=== PATIENT | female | born 1975 | race Caucasian/White ===

== ENCOUNTER 2017-05-06 13:00 | Emergency (ER) | payer MEDICAID ==
[~2017-05-06] VITALS: Ht 152.4 cm; Wt 110.0 kg
[2017-05-06 13:03] VITALS: Ht 152.4 cm; Wt 110.0 kg
[2017-05-06] MEDS ORDERED: SOD CHLORIDE 0.9% 1,000 ML IV STA ×2 (13:18→15:09)
[2017-05-06] MEDS ORDERED: ONDANSETRON 4 MG INJ IV STA (13:18)
[2017-05-06] MEDS ORDERED: morphine 4 MG/ML VIAL IV STA ×2 (13:18→16:47)
[2017-05-06 14:08] LABS: ADD SCAN DIFF NO
[2017-05-06 14:10] LABS: EOSINOPHILS # 0.1 10^3/ul (0.0-0.5); EOSINOPHILS % 1.3 % (0.0-7.0); HEMATOCRIT 40.5 % (37.0-47.0); HEMOGLOBIN 13.2 g/dl (12.0-16.0); LYMPHOCYTES # 2.1 10^3/ul (0.8-2.9); LYMPHOCYTES % 29.1 % (15.0-51.0); MEAN CORPUSCULAR HEMOGLOBIN 26.2 pg (29.0-33.0); MEAN CORPUSCULAR HGB CONC 32.6 g/dl (32.0-37.0); MEAN CORPUSCULAR VOLUME 80.5 fl (82.0-101.0); MONOCYTE # 0.3 10^3/ul (0.3-0.9); MONOCYTES % 3.8 % (0.0-11.0); NEUTROPHIL # 4.6 10^3/ul (1.6-7.5); NEUTROPHILS % 65.4 % (39.0-77.0); PLATELET COUNT 188 10^3/UL (140-415); RED BLOOD COUNT 5.03 10^6/ul (4.20-5.40); WHITE BLOOD COUNT 7.1 10^3/ul (4.8-10.8)
[2017-05-06 14:33] LABS: ALBUMIN 4.7 g/dl (3.3-4.9); ALBUMIN/GLOBULIN RATIO 1.34; BILIRUBIN,INDIRECT 0.4 mg/dl (0-1.1); BILIRUBIN,TOTAL 0.4 mg/dl (0.2-1.3); CREATININE 0.5 mg/dl (0.44-1.00); POTASSIUM 3.7 mmol/L (3.5-5.1); TOTAL PROTEIN 8.2 g/dl (6.1-8.1)
--- NOTE | 2017-05-06 15:22 | RADRPT ---
PROCEDURE: US Abdomen. CLINICAL INDICATION: abdominal pain TECHNIQUE: Multiple real-time images were acquired of the patient's right upper quadrant abdomen a nd retroperitoneum utilizing a high resolution transducer. COMPARISON: None FINDINGS: The liver demonstrates increased echogenicity. There is increased nodularity of the surface of the liver. The liver is enlarged in size and no focal solid lesions are seen. The liver measures 21.7 c m in length. The portal vein is patent with normal direction of flow. No intrahepatic biliary dilat ation is seen. There is a 1.9 cm calcified stone within the gallbladder. There is no pericholecystic fluid or gallb ladder wall thickening. The common bile duct measures 4 mm in maximal dimension. The visualized portions of the pancreas are unremarkable. The tail of the pancreas is not seen. No free fluid is identified. The right kidney is normal in size, and demonstrate normal echogenicity and cortical thickness. The right kidney measures 10.9 cm in long dimension. There is no evidence of hydronephrosis. There are no kidney stones. RPTAT: AA IMPRESSION: Hepatomegaly with increased echogenicity and a nodular contour, suspicious for cirrhosis. Single calcified stone within the gallbladder. .Doni Romero MD, MD Date Time Electronically viewed and signed by .Doni Romero MD, on 05/06/2017 15:22 .S/
[2017-05-06 15:33] LABS: URINE BLOOD (Dip) POC Negative (NEGATIVE)
[2017-05-06] MEDS ORDERED: METF500T4 PO (15:38)
[2017-05-06] MEDS ORDERED: HYDR-906 PO (15:38)
[2017-05-06] MEDS ORDERED: ONDA4TAB14 PO (15:38)
[2017-05-06 15:43] LABS: ADD UMIC YES; URINE BILIRUBIN (Dip) NEGATIVE (NEGATIVE); URINE BLOOD (Dip) TRACE (NEGATIVE); URINE COLOR LT. YELLOW (YELLOW); URINE GLUCOSE (Dip) >=1000 % (NEGATIVE); URINE KETONES (Dip) 15 (NEGATIVE); URINE LEUKOCYTE ESTERASE (Dip) NEGATIVE (NEGATIVE); URINE NITRITE (Dip) NEGATIVE (NEGATIVE); URINE TOTAL PROTEIN (Dip) TRACE (NEGATIVE); URINE UROBILINOGEN (Dip) 0.2 E.U./dL (0.1-1.0)
[2017-05-06 16:02] LABS: SQUAMOUS EPITHELIAL CELL,UR FEW; URINE RBCS 0-2 /HPF (0)
[2017-05-06] MEDS ORDERED: KETOROLAC 30 MG INJ IV STA (16:04)
[2017-05-06 16:06] VITALS: TEMP 98
--- NOTE | 2017-05-06 16:51 | EN ---
Date/Time of Note Date/Time of Note DATE: 05/06/17 TIME: 16:48 ER Progress Note Patient has already been discharged by JANICE Monsivais. I was informed by RN that patient is still complaining of severe abdominal pain, appears uncomfortable. Toradol 30 mg IV given to the patient. Patient reports no improvement of pain after Toradol. Morphine 4 mg IV was then given to the patient. After morphine, patient reports some improvement. Patient was discharged home at this time. Condition at time of discharge: Stable. SERGIO ALVAREZ NP May 06, 2017 16:51
[2017-05-06 17:17] VITALS: BP 128/70; PULSE 71; RESP 20
--- NOTE | 2017-05-07 06:21 | ERD ---
ER Documentation Chief Complaint Date/Time DATE: 05/07/17 TIME: 06:20 Chief Complaint AP RAD BACK ONSET LAST NIGHT HPI This is a 41-year-old female with no stated medical problems presenting to the emergency department complaining of epigastric pain that radiates to her back since last night. Patient rates the pain as constant, 8 out of 10 and sharp. Patient admits to having associated nausea. She denies vomiting, diarrhea, fevers. Patient states that she has tried Zantac without any relief. Patient denies alcohol or drug use. She states that her past abdominal surgeries include . ROS All systems reviewed and are negative except as per history of present illness. Medications Home Meds Active Scripts Ondansetron (Ondansetron Odt) 4 Mg Tab.rapdis, 4 MG PO Q6H Y for NAUSEA AND/OR VOMITING, #14 TAB Prov:BRANDIE GARCIA PA-C 05/06/17 Metformin* (Glucophage*) 500 Mg Tab, 500 MG PO BID, #60 TAB Prov:BRANDIE GARCIA PA-C 05/06/17 Hydrocodone/Acetaminophen ([place] 5-325 Tablet) 1 Each Tablet, 1 TAB PO Q6H Y for PAIN, #20 TAB Prov:BRANDIE GARCIA PA-C 05/06/17 Allergies Allergies: Coded Allergies: No Known Allergy (Unverified , 05/06/17) PMhx/Soc Medical and Surgical Hx: pt denies Medical Hx History of Surgery: Yes ( x3) Hx Miscellaneous Medical Probl: Yes () Hx Alcohol Use: No Hx Substance Use: No Hx Tobacco Use: Yes Smoking Status: Never smoker Physical Exam Vitals Vital Signs Date Time Temp Pulse Resp B/P Pulse Ox O2 Delivery O2 Flow Rate FiO2 05/06/17 17:17 71 20 128/70 97 Room Air 05/06/17 16:06 98.0 68 20 108/56 98 Room Air 05/06/17 13:03 98.8 99 18 136/81 99 Physical Exam GENERAL: well-developed/well-nourished, in no apparent distress, non-toxic appearing. Patient is obese with central obesity HENT: NC/AT, moist mucous membranes EYES: Conjunctiva normal NECK: Supple, no lymphadenopathy PULM: CTA bilaterally, no rales, rhonchi, or wheezing heard CV: Normal S1S2, RRR, good capillary refill GI: Soft, non-distended, tender to palpation right upper quadrant epigastric. Negative Parks's Normal bowel sounds, no masses or organomegaly felt on exam No gross peritonitis, no bruits Negative Rovsing, , negative McBurney's point, Negative CVAT BACK: No masses EXT: No clubbing, cyanosis, or edema NEURO: Alert and Orientated SKIN: Intact, normal turgor PSYCH: Normal mood and mentation Result Diagram: 05/06/17 1350 05/06/17 1350 Results 24 hrs Laboratory Tests Test 05/06/17 13:50 05/06/17 15:15 05/06/17 15:32 05/06/17 15:36 White Blood Count 7.110^3/ul Red Blood Count 5.0310^6/ul Hemoglobin 13.2g/dl Hematocrit 40.5% Mean Corpuscular Volume 80.5fl Mean Corpuscular Hemoglobin 26.2pg Mean Corpuscular Hemoglobin Concent 32.6g/dl Red Cell Distribution Width 14.0% Platelet Count 06098^3/UL Mean Platelet Volume 12.0fl Neutrophils % 65.4% Lymphocytes % 29.1% Monocytes % 3.8% Eosinophils % 1.3% Basophils % 0.0% Nucleated Red Blood Cells % 0.0/100WBC Neutrophils # 4.610^3/ul Lymphocytes # 2.110^3/ul Monocytes # 0.310^3/ul Eosinophils # 0.110^3/ul Basophils # 0.010^3/ul Nucleated Red Blood Cells # 0.010^3/ul Sodium Level 136mmol/L Potassium Level 3.7mmol/L Chloride Level 100mmol/L Carbon Dioxide Level 25mmol/L Anion Gap 15 Blood Urea Nitrogen 12mg/dl Creatinine 0.50mg/dl Glucose Level 346mg/dl Calcium Level 9.0mg/dl Total Bilirubin 0.4mg/dl Direct Bilirubin 0.00mg/dl Indirect Bilirubin 0.4mg/dl Aspartate Amino Transf (AST/SGOT) 88IU/L Alanine Aminotransferase (ALT/SGPT) 79IU/L Alkaline Phosphatase 116IU/L Total Protein 8.2g/dl Albumin 4.7g/dl Globulin 3.50g/dl Albumin/Globulin Ratio 1.34 Lipase 65U/L Urine Color LT. YELLOW Urine Clarity CLEAR Urine pH 6.0 Urine Specific [place] 1.020 Urine Ketones 15 Urine Nitrite NEGATIVE Urine Bilirubin NEGATIVE Urine Urobilinogen 0.2 E.U./dL Urine Leukocyte Esterase NEGATIVE Urine Microscopic RBC 0-2/HPF Urine Microscopic WBC 2-5/HPF Urine Squamous Epithelial Cells FEW Urine Hemoglobin TRACE Urine Glucose >=1000% Urine Total Protein TRACE Bedside Glucose 283mg/dL Bedside Urine pH (LAB) 6.0 Bedside Urine Protein (LAB) 1+ Bedside Urine Glucose (UA) 0.50% Bedside Urine Ketones (LAB) Trace Bedside Urine Blood Negative Bedside Urine Nitrite (LAB) Negative Bedside Urine Leukocyte Esterase (L Negative Current Medications Medications (Trade) Dose Ordered Sig/Jordana Route PRN Reason Start Time Stop Time Status Last Admin Dose Admin Sodium Chloride (NS) 1,000 ml @ 1,000 mls/hr Q1H STAT IV 05/06/17 13:18 05/06/17 14:17 DC 05/06/17 13:59 Morphine Sulfate (morphine) 4 mg ONCE STAT IV 05/06/17 13:18 05/06/17 13:20 DC 05/06/17 13:59 Ondansetron HCl 4 mg 4 mg ONCE STAT IV 05/06/17 13:18 05/06/17 13:20 DC 05/06/17 13:59 Sodium Chloride (NS) 1,000 ml @ 1,000 mls/hr Q1H STAT IV 05/06/17 15:09 05/06/17 16:08 DC 05/06/17 15:19 Ketorolac Tromethamine (Toradol) 30 mg ONCE STAT IV 05/06/17 16:04 05/06/17 16:05 DC 05/06/17 16:11 Morphine Sulfate (morphine) 4 mg ONCE STAT IV 05/06/17 16:47 05/06/17 16:49 DC 05/06/17 16:51 Procedures/MDM This is a 41-year-old female with no known medical problems presenting to the emergency room complaining of epigastric abdominal pain and nausea that radiates to the back since last night which is likely due to cholelithiasis and possibly due to cirrhosis. I doubt patient has sepsis, choledocholithiasis, cholecystitis or cholangitis, pancreatitis or other acute abdomen conditions due to physical examination and diagnostic testing. Patient appears well and nontoxic appearing with stable vital signs. Patient was also found to have hyperglycemia, likely due to a new diagnosis of diabetes type II, without any evidence of DKA or hyperosmolar state. IV access was established. Patient was given 2 L of fluid. Patient was given morphine and Zofran and pain appears to be stabilized in the ED during my encounter with the patient. Lab work was drawn. CBC did not show any evidence of leukocytosis or anemia. CMP showed mild elevated transaminases likely due to scarring of the liver. Glucose level was initially 346 and recheck after 1 L of fluids was 283. There was no evidence of DKA or hyperosmolar state. Patient had normal potassium. Urinalysis did not show any evidence of urinary tract infection. There was evidence of glucose in the urine. Gallbladder US: Hepatomegaly with increased echogenicity and a nodular contour, suspicious for cirrhosis. Single calcified stone within the gallbladder. Diagnostic testing and instructions were given to patient. When I have reassessed her she appeared to have her pain stabilized, patient still had 500cc of normal saline fluids left. Patient was in need of additional pain relief therefore HE[employer] SE[employer]IMMER Tiny provided that for her, she was stable to be discharged home. Prescription [place] and antiemetic Zofran prescriptions were provided for outpatient self-care. I have started patient on metformin 500 mg twice daily and discussed with patient to follow-up with primary care for full evaluation of diabetes and GI referral for cholecystectomy. Precautions were given to return to the ER for fever, intractable pain, increased vomiting, and other worsening signs and symptoms. Patient expressed agreement and understanding of this plan. Departure Diagnosis: Primary Impression: Cholelithiasis Additional Impression: High blood sugar Condition: Stable Patient Instructions: Hyperglycemia (High Blood Sugar), Treating Cirrhosis, Gallstones, Cirrhosis Ref[facility] Usted se wilkins hecho un examen mdico de control que le indica que no est en erin condicin que requiera tratamiento urgente en el Departamento de Emergencia. Un estudio ms profundo y el tratamiento de ortega condicin pueden esperar sin ningn riesgo hasta que usted sea atendida/o en el consultorio de ortega mdico o erin cl gilma. Es responsabilidad suya arreglar erin cal para el seguimiento del yareli. MANEJO DE CONDICIONES NO URGENTES EN EL FUTURO 1) Si usted tiene un mdico de atencin primaria: Usted debera llamar a ortega mdico de atencin primaria antes de venir al departamento de emergencia. Despus de las horas de consultorio, ortega doctor o ortega asociado/a est disponible por telfono. El mdico o enfermero de bobo en el servicio telefnico puede asesorarle por hadley medio para atender el problema, o yareli contrario se puede programar erin cal. 2) Si usted no tiene un mdico de atencin primaria: Llame al mdico o clnica de referencia que aparece abajo good las horas de consultorio para hacer erin cal para que le vean. CLINICAS: [facility] [phone] [address] [facility] [facility] [phone] [address] [facility] [facility] [phone] [address] [facility]. [place] [phone] [facility] [phone] [address] [facility]. [phone] [address] Additional Instructions: Visite a ortega mdico maana para un EXAMEN.Regrese a estas instalaciones si no se mejora chavez esperbamos o chavez le dijimos. [place] toda la medicina rocio y chavez se le indic. Regrese a estas instalaciones si no se mejora chavez esperbamos o chavez le dijimos. La medicina que se le recet puede causarle sueo.NO DEBE MANEJAR NI OPERAR MAQUINARIAS PELIGROSAS mientras esta tomando esta medicina! BRANDIE GARCIA PA-C May 07, 2017 06:21
== END 2017-05-06 17:30 | disposition home or self-care (01) ==
LOC: FTE 13:00
DX: K80.20 Calculus of gallbladder without cholecystitis without obstruction (principal); R73.9 Hyperglycemia, unspecified; R10.2 Pelvic and perineal pain; Z87.891 Personal history of nicotine dependence
CPT/HCPCS: 36415; 76705; 80053; 81001; 81003; 82962; 83690; 85025; 96361; 96374; 96375; 96376; J1885; J2270; J2405; J7030; Z7502

== ENCOUNTER 2018-03-10 08:30 | Inpatient (IN) | END 2018-03-17 15:30 | disposition home or self-care (01) | DRG 439 ==